=== PATIENT | male | born 1960 | race Caucasian/White ===

== ENCOUNTER 2017-07-09 01:18 | Inpatient (IN) | payer BC ==
[2017-07-09] MEDS: VANCOMYCIN 1 GM (PMX) 250 ML IVPB (03:14)
[2017-07-09 03:30] LABS: ADD MAN DIFF? NO
[2017-07-09 03:32] LABS: ABNORMAL IP MESSAGE 1; BASOPHIL # 0.1 10^3/ul (0.0-0.1); BASOPHILS % 0.6 % (0.0-2.0); EOSINOPHILS # 0.8 10^3/ul (0.0-0.5); HEMOGLOBIN 12.7 g/dl (14.0-18.0); LYMPHOCYTES # 3.2 10^3/ul (0.8-2.9); LYMPHOCYTES % 16.1 % (15.0-51.0); MEAN CORPUSCULAR HEMOGLOBIN 33.2 pg (29.0-33.0); MEAN CORPUSCULAR HGB CONC 33.4 g/dl (32.0-37.0); MEAN CORPUSCULAR VOLUME 99.2 fl (82.0-101.0); MONOCYTE # 3.4 10^3/ul (0.3-0.9); MONOCYTES % 17.1 % (0.0-11.0); NEUTROPHIL # 12.2 10^3/ul (1.6-7.5); NEUTROPHILS % 61.6 % (39.0-77.0); PLATELET COUNT 257 10^3/UL (140-415); POSITIVE DIFF @See below; RED BLOOD COUNT 3.83 10^6/ul (4.70-6.10); RED CELL DISTRIBUTION WIDTH 14.1 % (11.5-14.5)
[2017-07-09 03:32] LABS: WHITE BLOOD COUNT 19.9 10^3/ul (4.8-10.8)
[2017-07-09 03:49] LABS: ALANINE AMINOTRANSFERASE 102 IU/L (13-69); ALBUMIN 3.6 g/dl (3.3-4.9); ALBUMIN/GLOBULIN RATIO 1.05; ALKALINE PHOSPHATASE 88 IU/L (42-121); ANION GAP 16 (8-16); ASPARTATE AMINO TRANSFERASE 93 IU/L (15-46); BILIRUBIN,INDIRECT 0.4 mg/dl (0-1.1); BILIRUBIN,TOTAL 0.4 mg/dl (0.2-1.3); BLOOD UREA NITROGEN 22 mg/dl (7-20); CALCIUM 9.1 mg/dl (8.4-10.2); CARBON DIOXIDE 29 mmol/L (21-31); CHLORIDE 105 mmol/L (97-110); CREATININE 0.65 mg/dl (0.61-1.24); GLUCOSE 93 mg/dl (70-220); POTASSIUM 3.6 mmol/L (3.5-5.1); SODIUM 146 mmol/L (135-144)
[2017-07-09 03:50] LABS: LACTIC ACID 1.6 mmol/L (0.5-2.0)
[2017-07-09 03:52] LABS: INR 1.09; PARTIAL THROMBOPLASTIN TIME 40.7 Sec (25.0-35.0); PROTIME 14.2 Sec (11.9-14.9); PT RATIO 1.1
[2017-07-09 04:08] LABS: TROPONIN-I < 0.012 ng/ml (0.00-0.12)
[2017-07-09 04:37] LABS: ADD UMIC NO; UR ASCORBIC ACID 40 mg/dL (NEGATIVE); UR BILIRUBIN (Dip) NEGATIVE (NEGATIVE); UR BLOOD (Dip) NEGATIVE (NEGATIVE); UR CLARITY CLEAR (CLEAR); UR COLOR YELLOW (YELLOW); UR GLUCOSE (Dip) NEGATIVE (NEGATIVE); UR KETONES (Dip) TRACE mg/dL (NEGATIVE); UR LEUKOCYTE ESTERASE (Dip) NEGATIVE Leu/ul (NEGATIVE); UR NITRITE (Dip) NEGATIVE (NEGATIVE); UR TOTAL PROTEIN (Dip) NEGATIVE (NEGATIVE); UR UROBILINOGEN (Dip) 2+ mg/dL (NEGATIVE)
[2017-07-09] MEDS ORDERED: ALBUTEROL/IPRATROPIUM (NEB) 3 ML AMP HHN (05:00)
[2017-07-09] MEDS ORDERED: morphine 2 MG INJ IV (05:00)
[2017-07-09] MEDS ORDERED: VANCOMYCIN IV PER PHARMACY XX (05:00)
[2017-07-09] MEDS ORDERED: NACL 0.9% 3 ML SYG IV (05:00)
[2017-07-09] MEDS ORDERED: ONDANSETRON 4 MG INJ IV ×2 (05:00)
[2017-07-09] MEDS ORDERED: ACETAMINOPHEN 325 MG TAB PO ×2 (05:00)
[2017-07-09 06:41] LABS: LACTIC ACID 1.9 mmol/L (0.5-2.0)
[2017-07-09 07:58] LABS: LACTIC ACID 1.4 mmol/L (0.5-2.0)
[2017-07-09 08:12] LABS: HEPATITIS B SURFACE ANTIGEN NEGATIVE (NEGATIVE)
[2017-07-09 08:31] LABS: HEPATITIS B SURFACE ANTIBODY NEGATIVE (NEGATIVE)
[2017-07-09 08:35] LABS: HEPATITIS C VIRAL ANTIBODY REACTIVE (NEGATIVE)
[2017-07-09] MEDS: PYRIDOXINE 50 MG TAB PO (08:54)
[2017-07-09] MEDS: CEFEPIME 1GM/50 ML (PMX) 50 ML IVPB ×2 (08:55→20:53)
[2017-07-09] MEDS: clonAZEPAM 0.5 MG TAB PO (08:55)
[2017-07-09] MEDS: DOCUSATE SODIUM 100 MG CAP PO (08:55)
[2017-07-09] MEDS: LEVETIRACETAM 500 MG TAB PO ×2 (08:55→20:53)
[2017-07-09] MEDS: HYDROCODONE/APAP (5/325) TAB PO (08:55)
[2017-07-09] MEDS: OLANZAPINE 5 MG TAB PO ×2 (08:55→20:53)
[2017-07-09] MEDS: HEPARIN 5,000 UNIT/0.5 ML VIAL SC ×2 (09:47→21:02)
[2017-07-09] MEDS: LAMOTRIGINE 100 MG TAB PO ×2 (13:05→20:53)
[2017-07-09] MEDS: DIVALPROEX (ER) 250 MG TAB PO ×2 (13:05→20:53)
[2017-07-09] MEDS: TRIAMCINOLONE ACET 0.1% 15 GM CR TOP ×2 (13:05→20:54)
[2017-07-09] MEDS: VANCOMYCIN 1 GM 250 ML IVPB ×2 (13:05→23:31)
[2017-07-09] MEDS: ZOLPIDEM 5 MG TAB PO (20:53)
[2017-07-10 06:27] LABS: ADD MAN DIFF? NO
[2017-07-10 06:30] LABS: ABNORMAL IP MESSAGE 1; BASOPHIL # 0.1 10^3/ul (0.0-0.1); EOSINOPHILS # 1.9 10^3/ul (0.0-0.5); EOSINOPHILS % 15.5 % (0.0-7.0); HEMATOCRIT 34.9 % (42.0-52.0); HEMOGLOBIN 11.7 g/dl (14.0-18.0); LYMPHOCYTES # 3.3 10^3/ul (0.8-2.9); LYMPHOCYTES % 26.3 % (15.0-51.0); MEAN CORPUSCULAR HGB CONC 33.5 g/dl (32.0-37.0); MEAN CORPUSCULAR VOLUME 98.3 fl (82.0-101.0); MONOCYTE # 1.6 10^3/ul (0.3-0.9); NEUTROPHIL # 5.5 10^3/ul (1.6-7.5); NEUTROPHILS % 43.9 % (39.0-77.0); PLATELET COUNT 260 10^3/UL (140-415); POSITIVE DIFF @See below; RED BLOOD COUNT 3.55 10^6/ul (4.70-6.10); RED CELL DISTRIBUTION WIDTH 14.1 % (11.5-14.5)
[2017-07-10 06:30] LABS: WHITE BLOOD COUNT 12.5 10^3/ul (4.8-10.8)
[2017-07-10 07:05] LABS: ALANINE AMINOTRANSFERASE 90 IU/L (13-69); ALBUMIN 2.8 g/dl (3.3-4.9); ALKALINE PHOSPHATASE 74 IU/L (42-121); ANION GAP 11 (8-16); ASPARTATE AMINO TRANSFERASE 91 IU/L (15-46); BILIRUBIN,INDIRECT 0.5 mg/dl (0-1.1); BILIRUBIN,TOTAL 0.5 mg/dl (0.2-1.3); BLOOD UREA NITROGEN 14 mg/dl (7-20); CALCIUM 8.4 mg/dl (8.4-10.2); CARBON DIOXIDE 29 mmol/L (21-31); CHLORIDE 107 mmol/L (97-110); GLUCOSE 86 mg/dl (70-220); MAGNESIUM 1.9 mg/dl (1.7-2.5); PHOSPHORUS 2.6 mg/dl (2.5-4.9); POTASSIUM 3.7 mmol/L (3.5-5.1); SODIUM 143 mmol/L (135-144); TOTAL PROTEIN 5.6 g/dl (6.1-8.1)
[2017-07-10] MEDS: PYRIDOXINE 50 MG TAB PO (09:17)
[2017-07-10] MEDS: CEFEPIME 1GM/50 ML (PMX) 50 ML IVPB ×2 (09:17→20:08)
[2017-07-10] MEDS: OLANZAPINE 5 MG TAB PO ×2 (09:17→20:16)
[2017-07-10] MEDS: DIVALPROEX (ER) 250 MG TAB PO ×2 (09:17→20:16)
[2017-07-10] MEDS: LAMOTRIGINE 100 MG TAB PO ×2 (09:17→20:16)
[2017-07-10] MEDS: DOCUSATE SODIUM 100 MG CAP PO (09:17)
[2017-07-10] MEDS: LEVETIRACETAM 500 MG TAB PO ×2 (09:18→20:16)
[2017-07-10] MEDS: TRIAMCINOLONE ACET 0.1% 15 GM CR TOP ×2 (09:18→20:17)
[2017-07-10] MEDS: HEPARIN 5,000 UNIT/0.5 ML VIAL SC ×2 (09:19→20:15)
[2017-07-10] MEDS: VANCOMYCIN 1 GM 250 ML IVPB (12:02)
[2017-07-10] MEDS: ZOLPIDEM 5 MG TAB PO (20:07)
[2017-07-10] MEDS: HYDROCODONE/APAP (5/325) TAB PO (20:08)
[2017-07-11 00:14] LABS: VANCOMYCIN,TROUGH 7.8 ug/ml (10.0-20.0)
[2017-07-11] MEDS: VANCOMYCIN 1 GM 250 ML IVPB ×2 (00:33→08:09)
[2017-07-11 06:39] LABS: ADD MAN DIFF? NO
[2017-07-11 06:56] LABS: WHITE BLOOD COUNT 10.2 10^3/ul (4.8-10.8)
[2017-07-11 06:56] LABS: BASOPHIL # 0.1 10^3/ul (0.0-0.1); BASOPHILS % 1.2 % (0.0-2.0); EOSINOPHILS # 1.9 10^3/ul (0.0-0.5); EOSINOPHILS % 18.3 % (0.0-7.0); HEMATOCRIT 38.9 % (42.0-52.0); HEMOGLOBIN 12.8 g/dl (14.0-18.0); LYMPHOCYTES # 3.6 10^3/ul (0.8-2.9); LYMPHOCYTES % 35.2 % (15.0-51.0); MEAN CORPUSCULAR HEMOGLOBIN 32.7 pg (29.0-33.0); MEAN CORPUSCULAR HGB CONC 32.9 g/dl (32.0-37.0); MEAN CORPUSCULAR VOLUME 99.5 fl (82.0-101.0); MEAN PLATELET VOLUME 11.8 fl (7.4-10.4); MONOCYTE # 1.4 10^3/ul (0.3-0.9); MONOCYTES % 13.6 % (0.0-11.0); NEUTROPHIL # 3.2 10^3/ul (1.6-7.5); NEUTROPHILS % 31.2 % (39.0-77.0); PLATELET COUNT 258 10^3/UL (140-415); RED BLOOD COUNT 3.91 10^6/ul (4.70-6.10); RED CELL DISTRIBUTION WIDTH 13.9 % (11.5-14.5)
[2017-07-11 07:13] LABS: ANION GAP 12 (8-16); BLOOD UREA NITROGEN 14 mg/dl (7-20); CALCIUM 8.9 mg/dl (8.4-10.2); CARBON DIOXIDE 28 mmol/L (21-31); CHLORIDE 106 mmol/L (97-110); CREATININE 0.63 mg/dl (0.61-1.24); GLUCOSE 90 mg/dl (70-220); POTASSIUM 3.5 mmol/L (3.5-5.1); SODIUM 142 mmol/L (135-144)
[2017-07-11] MEDS: PYRIDOXINE 50 MG TAB PO (09:31)
[2017-07-11] MEDS: DOCUSATE SODIUM 100 MG CAP PO (09:31)
[2017-07-11] MEDS: OLANZAPINE 5 MG TAB PO (09:31)
[2017-07-11] MEDS: CEFEPIME 1GM/50 ML (PMX) 50 ML IVPB (09:31)
[2017-07-11] MEDS: DIVALPROEX (ER) 250 MG TAB PO (09:31)
[2017-07-11] MEDS: LEVETIRACETAM 500 MG TAB PO (09:31)
[2017-07-11] MEDS: LAMOTRIGINE 100 MG TAB PO (09:31)
[2017-07-11] MEDS: TRIAMCINOLONE ACET 0.1% 15 GM CR TOP (09:32)
[2017-07-11] MEDS: HEPARIN 5,000 UNIT/0.5 ML VIAL SC (09:32)
== END 2017-07-11 16:20 | DRG 603 ==
LOC: E/R 01:18 → MS2 04:54
PROVIDERS: Internal Medicine
DX: L03.116 Cellulitis of left lower limb (principal); F03.90 Unspecified dementia, unspecified severity, without behavioral disturbance, psychotic disturbance, mood disturbance, and anxiety; Z78.1 Physical restraint status; J44.9 Chronic obstructive pulmonary disease, unspecified; B95.62 Methicillin resistant Staphylococcus aureus infection as the cause of diseases classified elsewhere; F41.9 Anxiety disorder, unspecified; G40.909 Epilepsy, unspecified, not intractable, without status epilepticus; R62.7 Adult failure to thrive; Z87.820 Personal history of traumatic brain injury
CPT/HCPCS: 36415; 71045; 80048; 80053; 80202; 81003; 83605; 83735; 84100; 84484; 85025; 85610; 85730; 86706; 86803; 87040; 87070; 87086; 87340; 93005; 96365; 96372; 96375; 99285-25